=== PATIENT | female | born 1995 | race Caucasian/White ===

== ENCOUNTER 2018-05-13 19:15 | Emergency (ER) | payer OTHER ==
[~2018-05-13] VITALS: Ht 165.1 cm; Wt 68.0 kg
[2018-05-13 19:31] VITALS: BP 113/78
--- NOTE | 2018-05-13 19:35 | NUR ---
TO LOBBY A/W, LILLI ESPINAL NOTED
--- NOTE | 2018-05-13 20:49 | NUR ---
PT AMBULATED TO BED 5
--- NOTE | 2018-05-13 20:52 | NUR ---
22 YO F PRESENTS TO ED WITH CO FREQUENT N/V WITH DECREASED APPETITE. PT STATES THIS HAS BEEN ONGOING FOR ABOUT X 1 MONTH BUT HAS GOTTEN WORSE WITHIN THE PAST WEEK. SHE STATES SHE THROWS UP ALMOST EVERY TIME SHE EATS. PT DENIES ANY ABD PAIN BUT ADMITS TO ALMOST CONSTANT NAUSEA. SHE REPORTS THIS HAS HAPPENED ONCE BEFORE A FEW YEARS AGO AND WAS TOLD IT WAS STRESS/ANXIETY-INDUCED. PT ALSO STATES HER BOWEL MOVEMENTS HAVE BEEN MOSTLY DIARRHEA. PMH: GASTRITIS RX: OMEPRAZOLE NEEDED
--- NOTE | 2018-05-13 21:21 | NUR ---
Dr. Astorga evaluating patient at bedside.
[2018-05-13] MEDS ORDERED: ONDANSETRON 4 MG ODT PO ONE (21:35)
[2018-05-13 21:57] VITALS: BP 135/73
--- NOTE | 2018-05-13 21:57 | NUR ---
Patient discharged with v/s stable. Written and verbal after care instructions given and explained. Patient alert, oriented and verbalized understanding of instructions. Ambulatory with steady gait. All questions addressed prior to discharge. ID band removed. Patient advised to follow up with PMD. Rx of Promethazine, Xanax, and Protonix given. Patient educated on indication of medication including possible reaction and side effects. Opportunity to ask questions provided and answered.
== END 2018-05-13 21:57 | disposition home or self-care (01) ==
LOC: MED 19:15
DX: K29.70 Gastritis, unspecified, without bleeding (principal); F41.9 Anxiety disorder, unspecified; Z88.6 Allergy status to analgesic agent
CPT/HCPCS: 81002; 81025; 99283; Q0162